=== PATIENT | male | born 1985 | race African-American/Black ===

== ENCOUNTER 2023-05-07 23:52 | Emergency (ER) | payer SELFPAY ==
[~2023-05-07] VITALS: Ht 175.3 cm; Wt 105.0 kg
[~2023-05-07 23:52] MED LIST: LORTAB 10 PO; NO
[2023-05-08 00:40] LABS: BASO% 0.3 % (0-3); EOS% 0.4 % (0-8); HEMATOCRIT 38.5 % (39.0-50.0); HEMOGLOBIN 12.3 g/dl (14.0-18.0); IMMATURE GRANULOCYTES 0.5 % (0.0-5.0); LYMPH% 18.9 % (15-41); MEAN CELL VOLUME 86.5 fL CALC (80.0-100.0); MEAN CORPUSCULAR HGB 27.6 pG CALC (26.0-32.0); MEAN CORPUSCULAR HGB CONC 31.9 g/dL CAL (32.0-36.0); MONO% 8.1 % (2-13); NEUT# 6.53 thou/uL (1.82-7.42); NEUT% 71.8 % (42-76); RED BLOOD COUNT 4.45 mill/uL (4.70-6.10); RED CELL DISTRI WIDTH 16.7 % (11.5-15.5)
[2023-05-08 00:41] VITALS: BP 170/111
[2023-05-08 00:49] LABS: ALBUMIN 4.5 g/dL (3.2-5.0); ALKALINE PHOSPHATASE 141 u/l (38-126); ANION GAP 14 (6-22 (CALC)); BILIRUBIN, TOTAL 0.5 mg/dL (0.2-1.3); BUN 8 mg/dL (9-20); BUN/CREATININE RATIO 11 (12-20 (CALC)); CARBON DIOXIDE 25 mmol/l (22-30); CHLORIDE 103 mmol/l (95-108); CREATININE 0.7 mg/dL (0.7-1.3); GFR FOR AFR.AMER. > 60 ML/MIN (>=60 (CALC)); GFR OTHER RACES > 60 ML/MIN (>=60 (CALC)); POTASSIUM 3.8 mmol/l (3.5-5.1); SGOT/AST 25 u/l (17-59); SODIUM 138 mmol/l (137-146); TOTAL PROTEIN 8.4 g/dL (6.3-8.2)
[2023-05-08] MEDS ORDERED: PROMETHAZINE HY25 M1 PO (01:46)
[2023-05-08 02:02] VITALS: BP 156/84
== END 2023-05-08 02:06 | disposition home or self-care (01) | DRG 392 ==
LOC: ED 23:52
PROVIDERS: Family Medicine
DX: K52.9 Noninfective gastroenteritis and colitis, unspecified (principal); Z20.822 Contact with and (suspected) exposure to COVID-19